=== PATIENT | female | born 1965 | race Caucasian/White ===

== ENCOUNTER 2016-10-31 09:13 | Emergency (ER) | payer MEDICARE | END 2016-10-31 11:10 | disposition home or self-care (01) | LOC: ED 09:13 | DX: S61.210A Laceration without foreign body of right index finger without damage to nail, initial encounter (principal); W26.0XXA Contact with knife, initial encounter; Y93.G1 Activity, food preparation and clean up; Y92.9 Unspecified place or not applicable ==